=== PATIENT | female | born 1990 | race Two or more races ===

== ENCOUNTER 2017-07-11 12:40 | Emergency (ER) | payer MEDICAID ==
[~2017-07-11] VITALS: Ht 162.6 cm; Wt 86.2 kg
[2017-07-11 13:44] VITALS: BP 132/78
[2017-07-11] MEDS ORDERED: ACETAMINOPHEN 325 MG TAB PO ONE (14:00)
== END 2017-07-11 15:38 | disposition home or self-care (01) ==
LOC: EDBD 12:40 → ER 12:40
DX: O20.0 Threatened abortion (principal); O23.41 Unspecified infection of urinary tract in pregnancy, first trimester; Z3A.10 10 weeks gestation of pregnancy
CPT/HCPCS: 76801; 81002